=== PATIENT | female | born 1945 | race Caucasian/White ===

== ENCOUNTER → 2016-09-19 | Outpatient (CLI) | payer OTHER ==
[~2016-09-19] MED LIST: BIOTIN 5000MCG PO; CALCIUM 600 +1 EAC9 PO; DESYREL 150 MG150 MG PO; HYDROCHLOROTHIA25 MG PO; KRILL OIL 1,001 EACH PO; LO-DOSE ASPIRIN81 M2 PO; LORCET 5-325 M1 EACH PO; NEURONTIN300 MG PO; OMEPRAZOLE40 M1 PO; ZESTRIL5 MG PO; ZOCOR20 MG PO
== END | disposition home or self-care (01) ==
LOC: AMB 12:43
DX: M41.86 Other forms of scoliosis, lumbar region (principal); M48.06 Spinal stenosis, lumbar region; M51.26 Other intervertebral disc displacement, lumbar region; Z98.1 Arthrodesis status
CPT/HCPCS: 62304; 72081; 72114; 72132; 77003

== ENCOUNTER → 2016-12-25 | Outpatient (CLI) | payer OTHER | END | disposition home or self-care (01) | LOC: RAD 10:14 | DX: M43.16 Spondylolisthesis, lumbar region (principal); R93.7 Abnormal findings on diagnostic imaging of other parts of musculoskeletal system | CPT/HCPCS: 72100 ==

== ENCOUNTER → 2017-02-05 | Outpatient (CLI) | payer OTHER | END | disposition home or self-care (01) | LOC: RAD 13:49 | DX: M43.16 Spondylolisthesis, lumbar region (principal); Z98.1 Arthrodesis status | CPT/HCPCS: 72110 ==

== ENCOUNTER → 2017-05-13 | Outpatient (CLI) | payer OTHER | END | disposition home or self-care (01) | LOC: RAD 11:33 | DX: M43.16 Spondylolisthesis, lumbar region (principal); Z98.890 Other specified postprocedural states; M48.00 Spinal stenosis, site unspecified | CPT/HCPCS: 72110 ==